=== PATIENT | female | born 1940 | race African-American/Black ===

== ENCOUNTER 2019-05-24 18:03 | Emergency (ER) | payer MEDICARE, OTHER ==
[~2019-05-24] VITALS: Ht 165.1 cm; Wt 65.0 kg
[2019-05-24] MEDS ORDERED: EPINEPHRINE 0.1MG/ML (1:10,000) 10ML SYR ONE ×2 (18:34→18:35)
[2019-05-24 18:38] VITALS: BP 58/18
[2019-05-24] MEDS ORDERED: DOPAMINE 400MG/250ML PREMIX 250 ML IV ONE ×2 (18:41→18:45)
[2019-05-24] MEDS ORDERED: SODIUM CHLORIDE 0.9% 1,000 ML IV ONE (18:41)
[2019-05-24] MEDS ORDERED: NOREPINEPHRINE 4MG/250ML PMX 250 ML IV ONE (18:47)
== END 2019-05-24 20:30 | disposition expired ==
LOC: ER 18:03 → CANBEDREQ 22:49
DX: I46.9 Cardiac arrest, cause unspecified (principal); I10 Essential (primary) hypertension; N28.9 Disorder of kidney and ureter, unspecified
CPT/HCPCS: 31500; 36556; 82962; 92950; 93005; 96374; 99285; J1265; J3490; J7030